=== PATIENT | female | born 1960 | race Caucasian/White ===

== ENCOUNTER → 2020-05-12 08:41 | Outpatient (BNVA) | payer OTHER, SELFPAY | PROVIDERS: Visit Provider Student in an Organized Health Care Education/Training Program | DX: Z76.89 Persons encountering health services in other specified circumstances (principal) ==

== ENCOUNTER → 2020-07-30 08:48 | Outpatient (BNVA) | payer OTHER, SELFPAY | PROVIDERS: PCP Family Medicine; Visit Provider Student in an Organized Health Care Education/Training Program ==

== ENCOUNTER → 2020-11-05 15:17 | Outpatient (BNVA) | payer OTHER, SELFPAY | PROVIDERS: PCP Family Medicine; Visit Provider Student in an Organized Health Care Education/Training Program ==

== ENCOUNTER → 2021-07-21 07:52 | Outpatient (BNVA) | payer OTHER, SELFPAY | PROVIDERS: PCP Family Medicine; Visit Provider Nurse Practitioner Family ==

== ENCOUNTER → 2022-09-29 08:00 | Outpatient (BNVA) | payer OTHER, SELFPAY | PROVIDERS: PCP Family Medicine; Visit Provider Nurse Practitioner Family ==

== ENCOUNTER 2023-06-20 09:33 | Outpatient (AMB) | payer OTHER, SELFPAY ==
--- NOTE | 2023-06-20 09:38 | MHC.OFFVIS ---
Intake Vital Signs 06/20/23 09:39 Height 5 ft 3 in Weight 190 lb 7.67 oz BMI 33.7 BP 112/68 Blood Pressure Location Lt brachial Position Sitting Pulse 80 Pulse Source Pulse Oximeter Temp 97.3 F Temp Source Skin Pulse Oximetry (%) 96 Oxygen Delivery Method Room Air Intake Visit Reasons: Fibromyalgia. Intake Note: Pt last seen by Eden 09/29/22 presents today for follow up and test results. s/p reconstructive right wrist surgery April 04 with Hand [place] Derick Burns. Technology Education Instructor Required: No Accompanied by: Self / Same As Patient Allergies No Known Allergies Allergy (Verified 06/20/23 09:42) Medication List - Last Reconciled 06/20/23 by Vito Colvin MD acetaminophen (Tylenol) 650 mg PO Q6H PRN amitriptyline 100 mg PO BEDTIME anastrozole 1 mg PO DAILY atorvastatin 40 mg PO DAILY [id number] 600 mg calcium- 800 unit-50 mg 1 tab PO DAILY carvedilol 3.125 mg PO DAILY cyclobenzaprine 10 mg PO BEDTIME PRN exemestane 25 mg PO DAILY famotidine 20 mg PO BID PRN losartan 25 mg PO DAILY ondansetron HCl 4 mg PO Q8H PRN oxybutynin chloride 5 mg PO BID pantoprazole 40 mg PO DAILY pregabalin 50 mg PO BEDTIME pregabalin Each day take one cap in AM and one cap at noon sucralfate 10 mL PO QID triamcinolone acetonide 0.1% appl topical HPI HPI Comments History of Present Illness Details 63-year-old female with fibromyalgia returns for follow-up. She was last seen by Allegra Ruiz 09/2022. She is on amitriptyline 100 mg nightly, pregabalin 25 mg morning and noon and 50 mg nightly. She also takes Flexeril 10 mg bedtime. This regimen is well tolerated with no side effects. She states that back in March she had right hand surgery. She states that he surgery ended up being more extensive than initially thought and the recovery time is longer than expected. She states that she has been having a little bit more neck pain that she attributes to increased stress related to surgery. 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 Fibromyalgia Polymyalgia rheumatica Surgical History History of lumpectomy of right breast Hx of cholecystectomy Hx of section Family History Father CVD (cardiovascular disease) Mother Heart attack Social History Alcohol intake: current Alcohol intake frequency: a few times a month Alcohol type: wine and hard liquor Patient Tobacco Use Status: Never used Tobacco e-Cigarette/Vaping Use: Never Used Review of Systems ENT Reports neck pain Musc Details: Increased stress Reports neck pain Physical Exam Vital Signs: Last Vital Signs Temp 97.3 F 06/20/23 09:39 Pulse 80 06/20/23 09:39 BP 112/68 06/20/23 09:39 Pulse Ox 96 06/20/23 09:39 Oxygen Delivery Method Room Air 06/20/23 09:39 BMI result Body Mass Index 33.7 Const General: cooperative and healthy appearing Nutritional Appearance: obese Orientation/consciousness: patient oriented x3 Limitations: no limitations HEENT Head: Yes normocephalic and Yes atraumatic Resp Effort & Inspection: normal respiratory effort and able to speak in complete sentences Auscultation: clear to auscultation bilaterally Cardio Rate: regular rate Rhythm: regular rhythm Skin General skin exam: no rashes or lesions noted Neuro General: patient oriented x3 Extrem Other: Right hand in a splint Fingertips and a little cool and pale consistent with Raynaud's. Normal range of motion of shoulders and hips without pain The straight leg raise test bilaterally Few fibromyalgia tender points Bilateral paraspinal cervical muscle tenderness Assessment & Plan Assessment & Plan (1) Polymyalgia rheumatica: Comment: Initially diagnosed in 2017. Off prednisone since December 2019. No return of PMR symptoms Code(s): M35.3 - Polymyalgia rheumatica Plan: In remission.? She was initially diagnosed in 2017 when she presented with diffuse arthralgia and elevated inflammatory markers.? off prednisone since December 2019. No recurrence of PMR type symptoms. (2) Fibromyalgia: Code(s): M79.7 - Fibromyalgia Plan: Previously tried and failed gabapentin. Fibromyalgia symptoms are currently well controlled with Lyrica 25 mg in the am and at noon and 50 mg at bedtime.? She will continue amitriptyline and cyclobenzaprine at the current doses.? Advised patient to try stopping the afternoon Lyrica dose once she no longer needs the right hand splint. Otherwise continue her medications as prescribed Labs before next visit in 6 months Plan I spent 26 minutes reviewing patient's chart, evaluating patient, ordering diagnostic workup, counseling patient and documenting in the chart Orders: Orders Comprehensive Met. Panel 6 Months M35.3 - Polymyalgia rheumatica, Q60.2 - Renal agenesis, unspecified Coding Level of Care Code Est Pt Level 4 (77669) Diagnoses Polymyalgia rheumatica M35.3 Fibromyalgia M79.7
[2023-06-20 09:39] VITALS: BP 112/68; PULSE 80; TEMP 36.3; O2SAT 96; BMI 33.7
== END 2023-06-20 10:13 | disposition home or self-care (01) ==
PROVIDERS: PCP Family Medicine; Visit Provider Student in an Organized Health Care Education/Training Program
DX: M35.3 Polymyalgia rheumatica (principal); M79.7 Fibromyalgia
CPT/HCPCS: 99214

== ENCOUNTER → 2023-06-20 09:33 | Outpatient (BNVA) | payer OTHER, SELFPAY | PROVIDERS: PCP Family Medicine; Visit Provider Student in an Organized Health Care Education/Training Program ==

== ENCOUNTER 2023-12-19 09:19 | Outpatient (AMB) | payer OTHER, SELFPAY ==
--- NOTE | 2023-12-19 09:20 | MHC.OFFVIS ---
Vital Signs 12/19/23 09:24 Height 5 ft 3 in Weight 187 lb 9.814 oz BMI 33.2 BP 120/82 Blood Pressure Location Lt brachial Position Sitting Pulse 82 Pulse Source Pulse Oximeter Pulse Oximetry (%) 97 Oxygen Delivery Method Room Air Intake Visit Reasons: FMS/cm Intake Note: Patient presents for FMS. Allergies No Known Allergies Allergy (Verified 12/19/23 09:23) Medication List - Last Reconciled 12/19/23 by Vito Colvin MD acetaminophen (Tylenol) 650 mg PO Q6H PRN amitriptyline 100 mg PO BEDTIME anastrozole 1 mg PO DAILY atorvastatin 40 mg PO DAILY [id number] 600 mg calcium- 800 unit-50 mg 1 tab PO DAILY carvedilol 3.125 mg PO DAILY cyclobenzaprine 10 mg PO BEDTIME PRN exemestane 25 mg PO DAILY famotidine 20 mg PO BID PRN losartan 25 mg PO DAILY ondansetron HCl 4 mg PO Q8H PRN oxybutynin chloride 5 mg PO BID pantoprazole 40 mg PO DAILY pregabalin 50 mg PO BEDTIME pregabalin 25 mg PO BID sucralfate 10 mL PO QID triamcinolone acetonide 0.1% appl topical HPI Comments Details: 63-year-old female with fibromyalgia returns for follow-up. She was last seen by Allegra Ruiz 05/2023. She is on amitriptyline 100 mg nightly, pregabalin 25 mg morning and noon and 50 mg nightly. She also takes Flexeril 10 mg bedtime. This regimen is well tolerated with no side effects. She states that she has been having some achy burning pain in her upper left back as well as some fatigue. She feels that her fibromyalgia is flaring up. 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 Fibromyalgia Polymyalgia rheumatica Surgical History H/O hand surgery History of lumpectomy of right breast Hx of cholecystectomy Hx of section Family History Father CVD (cardiovascular disease) Mother Heart attack Social History Alcohol intake: current Alcohol intake frequency: a few times a month Alcohol type: wine and hard liquor Patient Tobacco Use Status: Never used Tobacco e-Cigarette/Vaping Use: Never Used Review of Systems Const Reports fatigue ENT Reports neck pain Musc Reports neck pain Endo Reports fatigue Physical Exam Vital Signs: Last Vital Signs Pulse 82 12/19/23 09:24 BP 120/82 12/19/23 09:24 Pulse Ox 97 12/19/23 09:24 Oxygen Delivery Method Room Air 12/19/23 09:24 BMI result Body Mass Index 33.2 Const General: cooperative and healthy appearing Nutritional Appearance: obese Orientation/consciousness: patient oriented x3 Limitations: no limitations HEENT Head: Yes normocephalic and Yes atraumatic Resp Effort & Inspection: normal respiratory effort and able to speak in complete sentences Auscultation: clear to auscultation bilaterally Cardio Rate: regular rate Rhythm: regular rhythm Skin General skin exam: no rashes or lesions noted Neuro General: patient oriented x3 Extrem Other: Few fibromyalgia tender points Normal range of motion of shoulders and hips without pain Negative straight leg raise test bilaterally Assessment & Plan Assessment & Plan (1) Polymyalgia rheumatica: Comment: Initially diagnosed in 2016. Off prednisone since December 2019. No return of PMR symptoms Code(s): M35.3 - Polymyalgia rheumatica Category: Medical Plan: In remission.? She was initially diagnosed in 2016 when she presented with diffuse arthralgia and elevated inflammatory markers.? off prednisone since December 2019. No recurrence of PMR type symptoms. (2) Fibromyalgia: Code(s): M79.7 - Fibromyalgia Category: Medical Plan: Previously tried and failed gabapentin. Fibromyalgia symptoms are currently well controlled with Lyrica 25 mg in the am and at noon and 50 mg at bedtime.? Continue current meds as prescribed Follow-up in 6 months Plan I spent 16 minutes reviewing patient's chart, evaluating patient, counseling patient and documenting in the chart Coding Level of Care Code Est Pt Level 3 (20485) Diagnoses Polymyalgia rheumatica M35.3 Fibromyalgia M79.7
[2023-12-19 09:24] VITALS: BP 120/82; PULSE 82; O2SAT 97; BMI 33.2
== END 2023-12-19 09:55 | disposition home or self-care (01) ==
PROVIDERS: PCP Family Medicine; Visit Provider Student in an Organized Health Care Education/Training Program
DX: M35.3 Polymyalgia rheumatica (principal); M79.7 Fibromyalgia
CPT/HCPCS: 99213

== ENCOUNTER → 2023-12-19 09:19 | Outpatient (BNVA) | payer OTHER, SELFPAY | PROVIDERS: PCP Family Medicine; Visit Provider Student in an Organized Health Care Education/Training Program ==

== ENCOUNTER 2024-06-20 15:36 | Outpatient (AMB) | payer OTHER, SELFPAY ==
--- NOTE | 2024-06-20 15:40 | MHC.OFFVIS ---
Vital Signs 06/20/24 15:49 Height 5 ft 3 in Weight 190 lb 4.143 oz BMI 33.7 BP 132/80 Blood Pressure Location Lt brachial Position Sitting Pulse 79 Pulse Source Pulse Oximeter Pulse Oximetry (%) 98 Oxygen Delivery Method Room Air Intake Visit Reasons: FMS Intake Note: Patient presents for FMS. Allergies No Known Allergies Allergy (Verified 06/20/24 15:43) Medication List - Last Reconciled 06/20/24 by Tsering Olvera MD acetaminophen (Tylenol) 650 mg PO Q6H PRN amitriptyline 100 mg PO BEDTIME atorvastatin 40 mg PO DAILY [id number] 600 mg calcium- 800 unit-50 mg 1 tab PO DAILY carvedilol 3.125 mg PO DAILY cyclobenzaprine 10 mg PO BEDTIME exemestane 25 mg PO DAILY famotidine 20 mg PO BID PRN losartan 25 mg PO DAILY omeprazole 20 mg PO BID ondansetron HCl 4 mg PO Q8H PRN oxybutynin chloride 5 mg PO BID pregabalin 25 mg PO BID pregabalin 50 mg PO BEDTIME sucralfate 10 mL PO QID HPI Comments Details: Patient is a 64-year-old female with hypertension, hyperlipidemia, polymyalgia rheumatica and fibromyalgia here today for follow up Interval History: Patient last seen 12/19/[address] Colvin. At that time she was found to be in remission with respect to her PMR. At that time she was complaining of widespread joint pains despite her medications Today, Has some stiffness in her shoulders that is concerning for return of PMR Has headaches that respond to Tylenol and no vision changes Still with fibromyalgia pains but manageable Rheumatologic History: Patient initially diagnosed with PMR in 2016 and was finally tapered off prednisone in 12/2019. Since then she has not had any return of her PMR symptoms. Has not had any concerning signs or symptoms for GCA. Also diagnosed with fibromyalgia and is currently maintained on meds Current Rheumatology Medication(s): Amitriptyline 100 mg nightly Pregabalin 25 mg in the morning, 25 mg at noon, 50 mg at night Flexeril 10 mg bedtime PFSH Medical History Breast cancer, right residential systemic steroid user Fibromyalgia Polymyalgia rheumatica Surgical History H/O hand surgery History of lumpectomy of right breast Hx of cholecystectomy Hx of section Family History Father CVD (cardiovascular disease) Mother Heart attack Social History Alcohol intake: current Alcohol intake frequency: a few times a month Alcohol type: wine and hard liquor Patient Tobacco Use Status: Never used Tobacco e-Cigarette/Vaping Use: Never Used Review of Systems Const Details: Review of Systems Constitutional: Denies fever, chills, weight loss ENT: Denies vision changes, eye pain or eye redness, dental caries, dry mouth GI: Denies nausea, vomiting, diarrhea, abdominal pain, change in BM Pulm: Denies SOB, MCDOWELL, hemoptysis, wheezing Cards: Denies chest pain, palpitations Skin: Denies Raynaud's, rash, nail changes, photosensitivity, CHILD WELFARE SPECIALIST: Denies headaches, weakness, paresthesias, recurrent falls MSK: as per HPI All other systems reviewed and are unremarkable except noted above Physical Exam Vital signs reviewed Physical Examination CONSTITUITIONAL Patient alert and cooperative. Well appearing and in no apparent painful distress Buffulo hump noted HEENT Conjunctiva and sclera clear. ?Pupils equal round and reactive to light. ?No lymphadenopathy. ? CHEST/RESPIRATORY SYSTEM Normal respiratory effort and able to speak in complete sentences. ?Clear to auscultation bilaterally. ?No crackles, rales, rhonchi, wheezes heard. CARDIAC SYSTEM Regular rate and rhythm. ?S1 and S2 heard no murmurs. ?Radial pulses intact bilaterally MSK Hands: ?Good irb compliance coordinator strength bilaterally. No deformities noted. ?No synovitis noted to the MCPs, PIPs or DIPs. ?Heberden's nodes noted Wrists: ?Full range of motion at the wrists without pain. ?No tenderness to palpation or synovitis noted to the wrists. Elbows: Full range of motion without pain. No tenderness, weakness, swelling, increased warmth or erythema. Shoulders: Full range of motion without pain. Tenderness to palpation of the AC joints bilaterally Hips: Full range of motion without pain. Hip bursa: No tenderness to palpation Knees: ?Full range of motion. ?No tenderness, swelling, increased warmth or erythema.? Crepitations felt bilaterally Ankles: Full range of motion. ?No tenderness, swelling, increased warmth or erythema.? Feet: ?Negative squeeze test. ?No tenderness to palpation or swelling of the MTPs. Tender points:? Tenderness to palpation of bilateral trapezius, supraspinatus, anterior costochondral junctions SKIN Skin intact without rashes. Results Reviewed Results Reviewed: Scanned lab results reviewed Assessment & Plan Assessment & Plan (1) Polymyalgia rheumatica: Comment: Initially diagnosed in 2016. Off prednisone since December 2019. No return of PMR symptoms Code(s): M35.3 - Polymyalgia rheumatica Category: Medical Plan: #PMR Patient is a 64-year-old female with a history of PMR. Successfully tapered off Prednisone. Currently in remission. Patient with concern for recurrence we will send blood work today No concern for GCA at this time Plan - check CBC, CMP, ESR and CRP - RTC 6 months - Labs prior to visit: CBC, CMP, ESR, CRP (2) Fibromyalgia: Code(s): M79.7 - Fibromyalgia Category: Medical Plan: #Fibromyalgia Patient with fibromyalgia and widespread joint pain Discussed that fibromyalgia is a disease of the nerves and it requires her to be consistent with her stretches and utilizing medications as tools to manage the pain so that she can do more activity. Patient requesting an increase in frequency of her cyclobenzaprine Plan - Amitriptyline 100 mg nightly - Pregabalin 25 mg in the morning, 25 mg at noon, 50 mg at night - Flexeril 10 mg bid - Encouraged stretching and exercise Plan I spent 20 minutes reviewing the record and labs, taking a history, examining the patient, discussing the treatment plan and documenting in the medical record Orders: Orders Comprehensive Met. Panel 6 Months M35.3 - Polymyalgia rheumatica Erythrocyte Sedimentation Rate 6 Months M35.3 - Polymyalgia rheumatica Complete Blood Count Auto Diff Today M35.3 - Polymyalgia rheumatica Comprehensive Met. Panel Today M35.3 - Polymyalgia rheumatica Erythrocyte Sedimentation Rate Today M35.3 - Polymyalgia rheumatica C Reactive Protein 6 Months M35.3 - Polymyalgia rheumatica Complete Blood Count Auto Diff 6 Months M35.3 - Polymyalgia rheumatica C Reactive Protein Today M35.3 - Polymyalgia rheumatica Medications: New amitriptyline 100 mg PO BEDTIME 30 tabs 5RF M79.7 - Fibromyalgia Changed From cyclobenzaprine 10 mg PO BEDTIME 30 tabs 3RF for muscle spasm M79.7 - Fibromyalgia To cyclobenzaprine 10 mg PO BID 60 tabs 5RF for muscle spasm M79.7 - Fibromyalgia Refilled pregabalin 25 mg PO BID 60 caps 5RF M79.7 - Fibromyalgia pregabalin 50 mg PO BEDTIME 30 caps 5RF M79.7 - Fibromyalgia Coding Level of Care Code Est Pt Level 3 (33308) Complex EM visit Add On G2211 Diagnoses Polymyalgia rheumatica M35.3 Fibromyalgia M79.7
[2024-06-20 15:49] VITALS: BP 132/80; PULSE 79; O2SAT 98; BMI 33.7
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
--- OUTSIDE RECORDS SUMMARY | 2024-06-20 19:18 | XMS_ITS | Clinical Summary ---
Author Organization [facility] Address [address] [place] [address] Phone Care Team Providers Care Rail Car Operator Name Role Phone Akin New Primary Care Provider [phone] Allergies No known active allergies Medications amitriptyline (ELAVIL) 25 MG tablet Take 4 tablets by mouth at bed time 3 Active atorvastatin (LIPITOR) 40 MG tablet Take 1 tablet by mouth 1 (one) time each day Active cyclobenzaprine (FLEXERIL) 10 MG tablet Take 1 tablet by mouth 3 (three) times a day Active Calcium 600/Vitamin D3 600-20 MG-MCG tablet TAKE 1 TABLET BY MOUTH EVERY DAY WITH A MEAL/SNACK 3 Active sucralfate (CARAFATE) 1 GM/10ML suspension 3 Active pregabalin (LYRICA) 50 MG capsule 50 mg at bed time 3 Active pantoprazole (PROTONIX) 40 MG EC tablet 3 Active famotidine (PEPCID) 20 MG tablet 3 Active exemestane (AROMASIN) 25 MG chemo tablet Take 25 mg by mouth 1 (one) time each day 3 Active clobetasol (TEMOVATE) 0.05 % ointment APPLY TOPICALLY 2 TIMES A DAY, X 2 WEEKS 3 Active pregabalin (LYRICA) 25 MG capsule TAKE 1 CAPSULE BY MOUTH EVERY MORNING AND AT NOON 4 Active carvedilol (COREG) 3.125 MG tablet Take 1 tablet (3.125 mg total) by mouth in the morning and 1 tablet (3.125 mg total) in the evening. 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 Benign essential hypertension 03/15/2021 Chronic kidney disease stage 3A 03/15/2021 Overview (09/14/2022): Per chart review meets GFR criteria Dyslipidemia 03/15/2021 Hypertensive renal disease 03/15/2021 Total nephrectomy 03/15/2021 Encounters Date Type Department Care Team Description 04/15/2024 Refill [facility] [address] [place] [address] Abraham Guillen MD from Last 3 Months Immunizations Name Administration Dates Next Due Influenza, Unspecified 03/28/2022,03/10/2020 Pfizer SARS-COV-2 09/20/2020,08/30/2020 SARS-CoV-2, Unspecified 03/28/2022 Family History Medical History Relation Comments Heart disease Father Hypertension Father Hypertension Mother Cancer Sibling Relation Status Comments Father Mother Sibling Social History Tobacco Use Types Packs/Day Years Used Date Smoking Tobacco: Never Smokeless Tobacco: Never Tobacco Cessation:Counseling Given: No Alcohol Use Standard Drinks/Week Comments Yes 0 (1 standard drink = 0.6 oz pure alcohol) Alcoholic Drinks/day: Occasional social drink Comments Unknown Sex and Gender Information Value Date Recorded Sex Assigned at Not on file Legal Sex Female 5:08 PM EST Gender Identity Not on file Sexual Orientation Not on file Last Filed Vital Signs Vital Sign Reading Time Taken Comments Blood Pressure 135/77 09/13/2023 2:12 PM EDT Pulse 67 09/13/2023 2:12 PM EDT Temperature - - Respiratory Rate - - Oxygen Saturation 98% 03/31/2021 3:33 PM EST Inhaled Oxygen Concentration - - Weight 88.5 kg (195 lb) 09/13/2023 2:12 PM EDT Height 160 cm (5' 3 ) 03/18/2020 12:01 PM EDT Body Mass Index 34.54 03/18/2020 12:01 PM EDT Plan of Treatment Upcoming Encounters Date Type Department Care Team (Late st Contact Info) Description 09/04/2024 1:15 PM EDT Office Visit [facility] [place] [address] Abraham Guillen MD [address] [phone] Health Maintenance Due Date Last Done Comments Breast Cancer Screening 1960 Pneumococcal Vaccine: Pediatrics (0 to 5 Years) and At-Risk Patients (6 to 64 Years) (1 of 2 - PCV) 1966 Colorectal Cancer Screening: Annual FOBT 2009 Colorectal Cancer Screening: Colonoscopy 2009 Colorectal Cancer Screening: Sigmoidoscopy 2009 Influenza Vaccine (#1) 2024 2, 03/10/2020 Hepatitis B Vaccine Aged Out No longe r eligible based on patient's age to complete this topic Insurance COMPREHENSIVE BENEFITS COMPREHENSIVE BENEFITS Care Teams Rail Car Operator Relationship Specialty Start Date End Date Akin New DO [address] [place] [address] PCP - General 06/01/20
--- OUTSIDE RECORDS SUMMARY | 2024-06-20 19:18 | XMS_ITS | Clinical Summary ---
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 10/03/2023 Active atorvastatin (LIPITOR) 40 mg tablet Take 1 tablet (40 mg total) by mouth. 09/25/2019 Active calcium carbonate-vitam in D3 600 mg-20 mcg (800 unit) tablet TAKE 1 TABLET BY MOUTH EVERY DAY WITH A MEAL/SNACK 08/12/2022 Active carvediloL (COREG) 3.125 mg tablet Take 1 tablet (3.125 mg total) by mouth. 09/25/2019 5 Active famotidine (PEPCID) 20 mg tablet 1 tablet (20 mg total). Active losartan (COZAAR) 25 mg tablet Take 1 tablet (25 mg total) by mouth. 07/19/2022 Active pregabalin (LYRICA) 50 mg capsule Take 1 capsule (50 mg total) by mouth at bedtime. Active sucralfate (CARAFATE) 100 mg/mL suspension 10 mL (1 g total). Active omeprazole OTC (PriLOSEC OTC) 20 mg EC tablet Take 1 tablet (20 mg total) by mouth 2 (two) times a day. Take on empty stomach, wait 30 minutes and then eat to activate medication-gurinder e before breakfast and before dinner 60 tablet 11 06/03/2024 6 Active omeprazole (PriLOSEC) [address] capsule Take 1 capsule (20 mg total) by mouth 2 (two) times a day before meals. Do not crush or chew. 60 capsule 11 06/05/2024 6 Active omeprazole (PriLOSEC) [address] capsule Take 1 capsule (20 mg total) by mouth 2 (two) times a day. Do not crush or chew. 5 Discontinued(Reo rder) omeprazole (PriLOSEC) [address] capsule Take 1 capsule (20 mg total) by mouth 2 (two) times a day. Do not crush or chew. 60 each 11 06/05/2024 5 Discontinued Encounters Date Type Department Care Team Description 06/03/2024 Telephone Gastroenterology [facility] 175 [facility] [address] [phone] Viral Kessler PA 06/03/2024 Telephone Gastroenterology [facility] 175 [facility] [address] [phone] Viral Kessler PA 05/31/2024 Telephone Gastroenterology [facility] [address] [address] Viral Kessler PA 05/31/2024 Telephone Gastroenterology [facility] [address] [phone] Viral Kessler PA Refill request 05/31/2024 Telephone Gastroenterology - [place] 175 [facility] [address] [address] Viral Kessler PA Provider Call Back 05/28/2024 Telephone Gastroenterology - [place] [address] [phone] Héctor Harden DO 05/19/2024 Telephone Gastroenterology [facility] [address] [phone] Domitila Matta PA 05/16/2024 12:38 PM EST Anesthesia Event [facility] [address] [place] [phone] Adonay Carrasquillo MD 05/16/2024 11:25 AM EST - 05/16/2024 11:59 PM EST Hospital Encounter [facility] [address] [place] [phone] Héctor Harden DO Piela, Robert C, MD Steele, Matthew G, CRNA Dysphagia, unspecified type; GERD (gastroesophageal reflux disease); Esophagitis; Esophageal dysmotility Discharge Disposition: Home or Self Care 05/07/2024 Telephone Gastroenterology [facility] 175 [facility] [address] [phone] Viral Kessler PA 04/23/2024 Telephone Gastroenterology [facility] [address] [phone] Viral Kessler PA Provider Call Back 04/11/2024 Telephone Gastroenterology [facility] 175 [facility] [address] [phone] Viral Kessler PA Request For Order(s) 04/01/2024 Telephone Gastroenterology [facility] [address] [phone] Viral Kessler PA provider call back [facility] [address] [phone] Viral Kessler PA provider call back from Last 3 Months Surgical History Surgery Date Site/Laterality Comments COLONOSCOPY 2011 PROCEDURE: HISTORICAL COLONOSCOPY SECTION PROCEDURE: HISTORICAL ; COMMENT: x 4 CARPAL TUNNEL RELEASE Bilateral PROCEDURE: HISTORICAL CARPAL TUNNEL REL COLONOSCOPY 04/06/2016 PROCEDURE: HISTORICAL COLONOSCOPY; COMMENT: Per PCP note.No results COLONOSCOPY 10/02/2019 PROCEDURE: HISTORICAL COLONOSCOPY; COMMENT: ascending colon polyp BREAST LUMPECTOMY Right Medical History Medical History Date Comments Congenital absence of kidney DX: Congenital absence of kidney; COMMENT: left 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; COMMENT: right Cervical spine syndrome DX:Cervi marilu spine syndrome; COMMENT: with associated muscle spasm Hypertension DX:Hypertension Hyperlipidemia DX:Hyperlipidemi a Fibromyalgia DX:Fibromyalgia Polymyalgia (CMS/HCC) DX:Polymya lgia (HCC) Shingles 10/01/2019 DX:Shingles; COM MENT: 11/2018 Colon polyps 10/01/2019 DX:Colon polyps; COMMENT: 2011 CN, Esophageal reflux DX:Esophageal reflux Other chest pain DX:Other chest pain Acute esophagitis DX:Acute esoph agitis Esophageal ulcer DX:Esophageal u lcer Nausea and vomiting DX:Nausea an d vomiting Dysphagia DX:Dysphagia Regurgitation of food DX:Regurgi tation of food Dysphagia DX:Dysphagia Esophagitis DX:Esophagitis Regurgitation of food DX:Regurgi tation of food Breast cancer (CMS/HCC) Family History Medical History Relation Name Comments Hypertension Brother Coronary artery disease Father Hypertension Mother CAD Breast cancer Sister Hypertension Relation Name Status Comments Brother Father Mother Sister Social History Tobacco Use Types Packs/Day Years [...] file Not on file Not on file Obstetrics History Last Filed Vital Signs Vital Sign Reading Time Taken Comments Blood Pressure 136/78 05/16/2024 1:15 PM EST Pulse 77 05/16/2024 1:15 PM EST Temperature 36.1 ??C (97 ??F) 05/16/2024 12:55 PM EST Respiratory Rate 16 05/16/2024 1:15 PM EST Oxygen Saturation 100% 05/16/2024 1:15 PM EST Inhaled Oxygen Concentration - - Weight 86.2 kg (190 lb) 05/16/2024 11:39 AM EST Height 160 cm (5' 3 ) 05/16/2024 11:39 AM EST Body Mass Index 33.66 05/16/2024 11:39 AM EST Plan of Treatment Upcoming Encounters Date Type Department Care Team (Late st Contact Info) Description 06/25/2024 9:00 AM EST Hospital Encounter [facility] [address] [place] [address] MariluHéctor, 175 [facility] [address] [place] [address] Health Maintenance Due Date Last Done Comments Breast Cancer Screening 1960 Pneumococcal Vaccine: Pediatrics (0 to 5 Years) and At-Risk Patients (6 to 64 Years) (1 of 2 - PCV) 1966 DTaP,Tdap,and Td Vaccines (1 - Tdap) 1979 Zoster Vaccines (1 of 2) 1979 Cervical Cancer Screening: P ap Smear 1981 Cholesterol Screening (Lipid Panel) 04/30/2022 Colorectal Cancer Screening: Colonoscopy 04/30/2022 Depression Screening 04/30/2022 HIV Screening 04/30/2022 Hepatitis C Screening 04/30/2022 Social Influencers of Health Screening 04/30/2022 Hypertension/CHF/CAD Annual BMP Blood Test 05/04/2022 COVID-19 Vaccine (2023-2 5 season) 2024 03/28/2022, 09/20/2020, 08/30/2020 Influenza Vaccine (#1) 2024 , 03/10/2020 RSV Immunization Patients 60 + Years Old (1 - 1-dose 75+ series) 2035 HIB Vaccines Aged Out No longer eligi ble based on patient's age to complete this topic HPV Vaccines Aged Out No longer eligi ble based on patient's age to complete this topic Hepatitis A Vaccines Aged Out No long er eligible based on patient's age to complete this topic Hepatitis B Vaccines Aged Out No long er eligible based on patient's age to complete this topic IPV Vaccines Aged Out No longer eligi ble based on patient's age to complete this topic MMR Vaccines Aged Out No longer eligi ble based on patient's age to complete this topic Meningococcal ACWY Vaccine Aged Out N o longer eligible based on patient's age to complete this topic RSV Immunization Patients Under 20 months Aged Out No longer eligible b ased on patient's age to complete this topic Varicella Vaccines Aged Out No longer eligible based on patient's age to complete this topic Procedures Procedure Name Priority Date/Time Associated Diagnosis Comments EGD Routine 05/16/2024 12:54 PM EST Dysphagia, unspecified type GERD (gastroesophageal reflux disease) Esophagitis Esophageal dysmotility TISSUE EXAM Routine 05/16/2024 12:51 PM EST Dysphagia, unspecified type GERD (gastroesophageal reflux disease) Esophagitis Esophageal dysmotility from Last 3 Months Results * EGD With Botox Injection; Anesthesia - MAC; [facility] ENDOSCOPY (05/16/2024 12:54 PM EST) Anatomical Region Laterality Modality Other 05/16/2024 12:3 8 PM EST Impressions 05/16/2024 12:57 PM EST - Normal examined duodenum. ? - Normal stomach. ? - Esophageal ulcer with stigmata of recent bleeding. ? Biopsied. ? - Benign-appearing esophageal stenosis. Dilated. Recommendation: ?- Discharge patient to home. ? - Resume previous diet. ? - Continue present medications. ? - Await pathology results. ? - Mucosal desquamation obstructing the distal ? esophagus, oral secretions in esophagus, tight GEJ. A ? dysmotility disorder is suspected. Patient should ? undergo a HREM to rule out achalasia. Narrative 05/16/2024 12:57 PM EST [facility] GI Patient Name: Elma Cherry Procedure Date: 05/16/2024 12:38 PM Date of : 1960 Age: 63 Gender: Female Note Status: Finalized Attending MD: Héctor Harden DO, [id number] Procedure Date No Time: 05/16/2024 Procedure: ? Upper GI endoscopy Indications: ? Dysphagia, Stricture of the esophagus Providers: ? Héctor Harden DO Referring MD: ?Eric Rivera MD Medicines: ? Monitored Anesthesia Care Complications: ? No immediate complications. Estimated blood loss: ? Minimal. Estimated Blood Loss: ? Estimated blood loss was minimal. Procedure: ? Pre-Anesthesia Assessment: ? - - Prior to the procedure, a History and Physical was ? performed, and patient medications and allergies were ? reviewed. The patient is competent. The risks and ? benefits of the procedure and the sedation options and ? risks were discussed with the patient. All questions ? were answered and informed consent was obtained. ? Patient identification and proposed procedure were ? verified by the physician, the nurse, the ? anesthesiologist, the cone examiner and the donor support technician ? in the pre-procedure area in the endoscopy suite. ? Mental Status Examination: alert and oriented. Airway ? Examination: normal oropharyngeal airway and neck ? mobility. Respiratory Examination: clear to ? auscultation. CV Examination: normal. Prophylactic ? Antibiotics: The patient does not require prophylactic ? antibiotics. Prior Anticoagulants: The patient has ? taken no anticoagulant or antiplatelet agents. ASA ? Grade Assessment: II - A patient with severe systemic ? disease. After reviewing the risks and benefits, the ? patient was deemed in satisfactory condition to ? undergo the procedure. The anesthesia plan was to use ? monitored anesthesia care (MAC). Immediately prior to ? administration of medications, the patient was ? re-assessed for adequacy to receive sedatives. The ? heart rate, respiratory rate, oxygen saturations, ? blood pressure, adequacy of pulmonary ventilation, and ? response to care were monitored throughout the ? procedure. The physical status of the patient was ? re-assessed after the procedure. ? After obtaining informed consent, the endoscope was ? passed under direct vision. Throughout the procedure, ? the patient's blood pressure, pulse, and oxygen ? saturations were monitored continuously. The Endoscope ? was introduced through the mouth, and advanced to the ? second part of duodenum. The upper GI endoscopy was ? accomplished without difficulty. The patient tolerated ? the procedure well. Findings: ?The examined duodenum was normal. ? The stomach was normal. ? One cratered esophageal ulcer with stigmata of recent ? bleeding was found 33 to 34 cm from the incisors. The ? lesion was 20 mm in largest dimension. Biopsies were ? taken with a cold forceps for histology. ? One benign-appearing, intrinsic mild stenosis was ? found 36 to 37 cm from the incisors. This stenosis ? measured 1.5 cm (inner diameter) x 1 cm (in length). ? The stenosis was traversed. A TTS dilator was passed ? through the scope. Dilation with a 12-13.5-15 mm ? balloon dilator was performed to 13 mm. The dilation ? site was examined following endoscope reinsertion and ? showed moderate mucosal disruption. Procedure Code(s): ? --- Professional --- ? 65129, Esophagogastroduodenoscopy, flexible, ? transoral; with transendoscopic balloon dilation of ? esophagus (less than 30 mm diameter) ? 33324, 59, Esophagogastroduodenoscopy, flexible, ? transoral; with biopsy, single or multiple Diagnosis Code(s): ? --- Professional --- ? K22.11, Ulcer of esophagus with bleeding ? K22.2, Esophageal obstruction ? R13.10, Dysphagia, unspecified CPT copyright 2020 [employer]. All rights reserved. The codes documented in this report are preliminary and upon chartered accountant review may be revised to meet current compliance requirements. HÉCTOR Harden DO 05/16/2024 12:56:54 PM This report has been signed electronically.Héctor Harden DO Number of Addenda: 0 Note Initiated On: 05/16/2024 12:38 PM Scope In: Scope Out: ? Endoscopy Department at [facility] - [address] [place] [address], ? [place] [address] Procedure Note Héctor Harden DO - 05/16/2024 [facility] GI Patient Name: Elma Cherry Procedure Date: 05/16/2024 12:38 PM Date of : 1960 Age: 63 Gender: Female Note Status: Finalized Attending MD: Héctor Harden DO, [id number] Procedure Date No Time: 05/16/2024 Procedure: Upper GI endoscopy Indications: Dysphagia, Stricture of the esophagus Providers: Héctor Harden DO Referring MD: Eric Rivera MD Medicines: Monitored Anesthesia Care Complications: No immediate complications. Estimated blood loss: Minimal. Estimated Blood Loss: Estimated blood loss was minimal. Procedure: Pre-Anesthesia Assessment: - - Prior to the procedure, a History and Physicalwas performed, and patient medications and allergieswere reviewed. The patient is competent. The risks and benefits of the procedure and the sedation optionsand risks were discussed with the patient. Allquestions were answered and informed consent was obtained. Patient identification and proposed procedure were verified by the physician, the nurse, the anesthesiologist, the cone examiner and thetechnician in the pre-procedure area in the endoscopy suite. Mental Status Examination: alert and oriented.Airway Examination: normal oropharyngeal airway and neck mobility. Respiratory Examination: clear to auscultation. CV Examination: normal. Prophylactic Antibiotics: The patient does not requireprophylactic antibiotics. Prior Anticoagulants: The patient has taken no anticoagulant or antiplatelet agents. ASA Grade Assessment: II - A patient with severesystemic disease. After reviewing the risks and benefits,the patient was deemed in satisfactory condition to undergo the procedure. The anesthesia plan was touse monitored anesthesia care (MAC). Immediately priorto administration of medications, the patient was re-assessed for adequacy to receive sedatives. The heart rate, respiratory rate, oxygen saturations, blood pressure, adequacy of pulmonary ventilation,and response to care were monitored throughout the procedure. The physical status of the patient was re-assessed after the procedure. After obtaining informed consent, the endoscope was passed under direct vision. Throughout theprocedure, the patient's blood pressure, pulse, and oxygen saturations were monitored continuously. TheEndoscope was introduced through the mouth, and advanced tothe second part of duodenum. The upper GI endoscopy was accomplished without difficulty. The patienttolerated the procedure well. Findings: The examined duodenum was normal. The stomach was normal. One cratered esophageal ulcer with stigmata ofrecent bleeding was found 33 to 34 cm from the incisors.The lesion was 20 mm in largest dimension. Biopsieswere taken with a cold forceps for histology. One benign-appearing, intrinsic mild stenosis was found 36 to 37 cm from the incisors. This stenosis measured 1.5 cm (inner diameter) x 1 cm (inlength). The stenosis was traversed. A TTS dilator waspassed through the scope. Dilation with a 12-13.5-15 mm balloon dilator was performed to 13 mm. Thedilation site was examined following endoscope reinsertionand showed moderate mucosal disruption. Procedure Code(s): --- Professional --- 91153, Esophagogastroduodenoscopy, flexible, transoral; with transendoscopic balloon dilation of esophagus (less than 30 mm diameter) 95479, 59, Esophagogastroduodenoscopy, flexible, transoral; with biopsy, single or multiple Diagnosis Code(s): --- Professional --- K22.11, Ulcer of esophagus with bleeding K22.2, Esophageal obstruction R13.10, Dysphagia, unspecified CPT copyright 2020 [employer]. All rights reserved. The codes documented in this report are preliminary and upon chartered accountant reviewmay be revised to meet current compliance requirements. HÉCTOR Harden DO 05/16/2024 12:56:54 PM This report has been signed electronically.Héctor Harden DO Number of Addenda: 0 Note Initiated On: 05/16/2024 12:38 PM Scope In: Scope Out: Endoscopy Department at [facility] - [address] [place] [phone] IMPRESSION: - Normal examined duodenum. - Normal stomach. - Esophageal ulcer with stigmata of recentbleeding. Biopsied. - Benign-appearing esophageal stenosis. Dilated. Recommendation: - Discharge patient to home. - Resume previous diet. - Continue present medications. - Await pathology results. - Mucosal desquamation obstructing the distal esophagus, oral secretions in esophagus, tight GEJ.A dysmotility disorder is suspected. Patient should undergo a HREM to rule out achalasia. Héctor Harden DO GI~PROCEDURE ORDERAB LES * Tissue exam (05/16/2024 12:51 PM EST) Final Diagnosis A. Distal esophagus, biopsy. Esophageal squamous mucosa with acute inflammation, mucosal erosion, and a rare detached fragment of fibrinopurulent exudate. No glandular mucosa and no intraepithelial eosinophils identified. A GMS stain is negative for fungal forms. B. 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 4 1:11 PM EST [facility] Gross Description A. Esophagus, distal esophageal ulcer biopsies: Labeled distal esophagus . Received in formalin are four irregular pink-white mucosal tissue fragments, each measuring approximately 0.2 cm in greatest dimension, which are wrapped in paper and submitted in toto in one cassette, four pieces, multiple levels on one slide. B. Esophagus, mid esophagus biopsies: Labeled mid esophagus . Received in formalin are two irregular pink-white mucosal tissue fragments, measuring 0.2 cm and 0.4 cm in greatest dimension, which are wrapped in paper and submitted in toto in one cassette, two pieces, multiple levels on one slide. IMTIAZ 1:11 PM EST [facility] Disclaimer NOTE: The immunohistochemical tests and in situ hybridization tests were developed and their performance characteristics were determined by [facility]. They have not been cleared or approved by the U.S. Food and Drug Administration. The FDA has determined that such clearance or approval is not necessary. These tests are used for clinical purposes. They should not be regarded as investigational or for research. This laboratory is certified under the Clinical Laboratory Improvement Amendments of 1988 (CLIA) as qualified to perform high complexity clinical laboratory testing. (controls appropriate) Unless otherwise specified, all tissue is 10% NB formalin fixed and paraffin embedded. 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
--- OUTSIDE RECORDS SUMMARY | 2024-06-20 19:18 | XMS_ITS | Encounter Summary ---
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 Role Phone Akin New DO Primary Care Provider [phone] Reason for Referral * Consultation (Urgent) - Authorized Specialty Diagnoses / Procedures Referred By Krystal lei Referred To Contact Gastroenterology Diagnoses Esophageal disorder Viral Kessler PA 175 [facility] [address] [address] [facility] - Internal Medicine [address] [place] [address] Referral ID Status Reason Start Date Expiration Date Visits Requested Visits Authorized [id number] Authorized Specialty Services Required 06/03/2024 06/03/2025 6 6 Encounter Details Date Type Department Care Team ([facility] st Contact Info) Description 06/03/2024 Telephone Gastroenterology - [place] 175 [facility] [address] [facility] [address] [address] Viral Kessler PA [address] [facility] [address] [place] [address] Social History Tobacco Use Types Packs/Day Years [...] as of this encounter Progress Notes * Opal Leong [place] - 06/12/2024 11:35 AM EST Referrals department has obtained authorization and are trying to book patient. Waiting for appointment. * REENA Phipps - 06/03/2024 11:50 AM EST Patient needs to be set up for high resolution manometry at [facility]. Will put an order to [facility] for manometry study documented in this encounter Plan of Treatment Upcoming Encounters Date Type Department Care Team (Late st Contact Info) Description 06/25/2024 9:00 AM EST Hospital Encounter [facility] Endoscopy [address] [place] [phone] Evans Harden DO 175 [facility] [address] [place] [address] Scheduled Referrals Name Type Priority Associated Diagnoses Order Schedule Ambulatory referral to Gastroenterology Outpatient Referral Routine Esophageal disorder 1 Occurrences starting 06/03/2024 until 06/03/2025 documented as of this encounter Visit Diagnoses Diagnosis Esophageal disorder- Primary Unspecified disorder of esophagus documented in this encounter Care Teams Dry Chain Puller Relationship Specialty Start Date End Date Akin New DO [address] [place], [place] PCP - General 03/27/09 documented as of this encounter
--- OUTSIDE RECORDS SUMMARY | 2024-06-20 19:18 | XMS_ITS | Encounter Summary ---
Author Organization [facility] Address [address] [place] [address] Care Team Providers Care Car Changer Name Role Phone Akin New DO Primary Care Provider [phone] Reason for Visit * Reason Onset Date Comments Provider Call Back 04/23/2024 Encounter Details Date Type Department Care Team (Late st Contact Info) Description 04/23/2024 Telephone Gastroenterology - [place] [address] [place] [phone] Viral Kessler PA [address] [place] [address] Provider Call Back Social History Tobacco Use Types Packs/Day Years Used Date Smoking Tobacco: Never Smokeless Tobacco: Never Alcohol Use Standard Drinks/Week Comments Yes 0 [...] as of this encounter Progress Notes * Yomaira Wilkerson - 05/06/2024 3:02 PM EST Patient calling would like to proceed with scheduling an EGD * Opal Leong MA - 05/03/2024 10:01 AM EST results are in your bin for review, thanks. * REENA Phipps - 05/03/2024 8:13 AM EST I have contacted [facility] a couple of times to have that report sent over for the abnormal swallowing study but have not seen the paperwork. Please see if we can obtain those results. Thank you * REENA Phipps - 04/23/2024 12:05 PM EST I have tried to reach him on a couple of occasions this morning and 1 I was told that he was busy and then this last time the phone nobody answered. Will try and call him again and if they call againplease see if they can send us the results. Thank you * Yomaira Wilkerson - 04/23/2024 9:10 AM EST Lexx calling from [facility] Radiology states that he has findings that need to be discussed. States Viral can either call or respond on tiger text which may be easier. Call back # [phone]. documented in this encounter Plan of Treatment Upcoming Encounters Date Type Department Care Team (Late st Contact Info) Description 06/25/2024 9:00 AM EST Hospital Encounter [facility] Endoscopy [address] [place] [address] Evans Harden DO 175 [facility] [address] [place] [address] documented as of this encounter Visit Diagnoses Not on filedocumented in this encounter Care Teams Car Changer Relationship Specialty Start Date End Date Akin New DO [address] [place] [address] PCP - General 03/27/09 documented as of this encounter
--- OUTSIDE RECORDS SUMMARY | 2024-06-20 19:18 | XMS_ITS | Encounter Summary ---
Author Organization [facility] Address [address] [place] [address] Care Team Providers Care Foundry Technician Name Role Phone Akin New DO Primary Care Provider [phone] Reason for Visit * Reason Onset Date Comments Provider Call Back 05/31/2024 Encounter Details Date Type Department Care Team (Late st Contact Info) Description 05/31/2024 Telephone Gastroenterology - [place] [address] [place] [phone] Viral Kessler PA [address] [place] [address] Provider Call Back Social History Tobacco Use [...] Progress Notes * Opal Leong MA - 06/18/2024 11:06 AM EST In encounter from 06/03, message was placed on 06/12 that referrals department has obtained approval and we are waiting for them to book the patient. Left a vm for the patient to call our office back. * Marina Bradshaw - 06/18/2024 10:36 AM EST Spoke to patient to scheduled repeat egd with dr michel and she was asking about message below. She hasn't heard from anyone. Please reach out to patient. Thank you. * Opal Leong MA - 06/03/2024 8:42 AM EST I see a note from 05/19/[address] Michel wants a high resolution esophageal manometry for achalasia. Please advise, thanks. [facility] does them, can we put in the order. Thanks * Yomaira Wilkerson - 05/31/2024 2:49 PM EST Patient calling states she will go for esophageal manometry at [facility] or [facility]. Patient would prefer to be seen at [facility]. Patient prefers more local. documented in this encounter Plan of Treatment Upcoming Encounters Date Type Department Care Team (Late st Contact Info) Description 06/25/2024 9:00 AM EST Hospital Encounter [facility] Endoscopy [address] [place] [phone] Evans Michel DO 175 [facility] [address] [place] [address] documented as of this encounter Visit Diagnoses Not on filedocumented in this encounter Care Teams Foundry Technician Relationship Specialty Start Date End Date Akin New DO [address] [place], [place] PCP - General 03/27/09 documented as of this encounter
--- OUTSIDE RECORDS SUMMARY | 2024-06-20 19:18 | XMS_ITS | Encounter Summary ---
Author Organization [facility] Address [address] [place] [address] Care Team Providers Care Personal Attendant Name Role Phone Akin New DO Primary Care Provider [phone] Encounter Details Date Type Department Care Team (Late st Contact Info) Description 05/31/2024 Telephone Gastroenterology - [place] [address] [facility] 175 [facility] [address] [place] [address] Viral Kessler PA [address] [place] [address] Social History Tobacco Use Types Packs/Day Years [...] Progress Notes * Opal Leong MA - 06/03/2024 3:40 PM EST Pharmacy has been updated in chart. * REENA Phipps - 05/31/2024 4:28 PM EST Will send the omeprazole to her pharmacy but I need to know which pharmacy to send to please * REENA Phipps - 05/31/2024 4:27 PM EST Needs omeprazole twice daily to be sent to her pharmacy documented in this encounter Plan of Treatment Upcoming Encounters Date Type Department Care Team (Late st Contact Info) Description 06/25/2024 9:00 AM EST Hospital Encounter [facility] Endoscopy [address] [place] [phone] Evans Harden DO [address] [address] documented as of this encounter Visit Diagnoses Not on filedocumented in this encounter Care Teams Personal Attendant Relationship Specialty Start Date End Date Akin New DO [address] [place] [address] PCP - General 03/27/09 documented as of this encounter
--- OUTSIDE RECORDS SUMMARY | 2024-06-20 19:18 | XMS_ITS | Encounter Summary ---
Author Organization [facility] Address [address] [place] [address] Care Team Providers Care Applied Behavior Science Specialist Name Role Phone Akin New DO Primary Care Provider [phone] Reason for Visit * Reason Onset Date Comments Refill request 05/31/2024 Encounter Details Date Type Department Care Team (Late st Contact Info) Description 05/31/2024 Telephone Gastroenterology - [place] [address] [place] [phone] Viral Kessler PA [address] [place] [address] Refill request Social History Tobacco Use Types Packs/Day Years [...] encounter Progress Notes * Yomaira Wilkerson - 05/31/2024 2:53 PM EST Patient calling states Dr Harden did her EGD 05/16 and wanted her to take omeprazole 2 times a day however there has been nothing sent to her pharmacy. documented in this encounter Plan of Treatment Upcoming Encounters Date Type Department Care Team (Late st Contact Info) Description 06/25/2024 9:00 AM EST Hospital Encounter [facility] Endoscopy [address] [place] [phone] Evans Harden DO 175 [facility] [address] [place] [address] documented as of this encounter Visit Diagnoses Not on filedocumented in this encounter Care Teams Applied Behavior Science Specialist Relationship Specialty Start Date End Date Akin New DO [address] [place] [address] PCP - General 03/27/09 documented as of this encounter
--- OUTSIDE RECORDS SUMMARY | 2024-06-20 19:18 | XMS_ITS | Encounter Summary ---
Author Organization [facility] Address [address] [place] [address] Care Team Providers Care Telecommunications Repairer Name Role Phone Akin New DO Primary Care Provider [phone] Encounter Details Date Type Department Care Team ([facility] st Contact Info) Description 06/03/2024 Telephone Gastroenterology - [place] [address] [facility] [address] [place] [address] Viral Kessler PA [address] [facility] [address] [place] [address] Social History Tobacco Use Types Packs/Day Years [...] on file documented as of this encounter Ordered Prescriptions Prescription Sig Dispensed Refills Start Date End Da te omeprazole OTC (PriLOSEC OTC) 20 mg EC tablet Take 1 tablet (20 mg total) by mouth 2 (two) times a day. Take on empty stomach, wait 30 minutes and then eat to activate medication-take before breakfast and before dinner 60 tablet 11 06/03/2024 06/03/2025 documented in this encounter Progress Notes * REENA Phipps - 06/03/2024 4:22 PM EST Patient is looking for omeprazole 20 mg to be prescribed twice a day and we will send it to her pharmacy documented in this encounter Plan of Treatment Upcoming Encounters Date Type Department Care Team (Late st Contact Info) Description 06/25/2024 9:00 AM EST Hospital Encounter [facility] Endoscopy [address] [place] [phone] Evans Harden DO 175 [facility] [address] [place] [address] documented as of this encounter Visit Diagnoses Not on filedocumented in this encounter Care Teams Telecommunications Repairer Relationship Specialty Start Date End Date Akin New DO [address] [place], [place] PCP - General 03/27/09 documented as of this encounter
== END 2024-06-20 16:09 | disposition home or self-care (01) ==
PROVIDERS: PCP Family Medicine; Visit Provider Student in an Organized Health Care Education/Training Program
DX: M35.3 Polymyalgia rheumatica (principal); M79.7 Fibromyalgia
CPT/HCPCS: 99213

== ENCOUNTER → 2024-06-20 15:36 | Outpatient (BNVA) | payer OTHER, SELFPAY | PROVIDERS: PCP Family Medicine; Visit Provider Student in an Organized Health Care Education/Training Program ==

== ENCOUNTER 2024-12-05 07:43 | Outpatient (AMB) | payer OTHER, SELFPAY ==
--- OUTSIDE RECORDS SUMMARY | 2024-12-05 07:45 | XMS_ITS | Referral Summary ---
Author Organization [facility] Address [address] [place] [address] Care Team Providers Care Price Changer Name Role Phone Akin New Primary Care Provider [phone] Allergies No known active allergies Medications pregabalin (LYRICA) 25 mg capsule Take 25 mg by mouth 2 times a day. Active pregabalin (LYRICA) 50 mg capsule Take 50 mg by mouth 2 times a day. Active oxybutynin (DITROPAN) 5 mg tablet Take 5 mg by mouth. Active cyclobenzaprine (FLEXERIL) 10 mg tablet Take 10 mg by mouth. Active esomeprazole (NexIUM) 40 mg capsule Take 20 mg by mouth. 07/02/2024 Active atorvastatin (LIPITOR) 40 mg tablet Take 40 mg by mouth once a day. Active amitriptyline (ELAVIL) 100 mg tablet Take 100 mg by mouth nightly. Active carvediloL (COREG) 3.125 mg tablet Take 3.125 mg by mouth. Active exemestane (AROMASIN) 25 mg tablet Take 25 mg by mouth once a day. Active losartan (COZAAR) 25 mg tablet Take 25 mg by mouth once a day. Active famotidine (PEPCID) 20 mg tablet Take 20 mg by mouth. Active sucralfate (CARAFATE) 1 g/10 mL suspension Take 10 mg by mouth. 07/22/2024 Active hyoscyamine (ANASPAZ,LEVSIN) 0.125 mg tablet Take by mouth. 03/12/2024 Active Hospital, Clinic, or Other Facility Administered Medication Ordered Dose Route Frequency Start Date End Date Status lidocaine (XYLOCAINE) 4% (40 mg/mL) topical solution 80 mg 80 mg topical Once 08/12/2024 Active Social History Tobacco Use Types Packs/Day Years Used Date Smoking Tobacco: Never Smokeless Tobacco: Never Tobacco Cessation:Counseling Given: Not Answered Comments No Sex and Gender Information Value Date Recorded Sex Assigned at Female 07/29/2024 10:14 AM EDT Legal Sex Female 4:41 PM EDT Gender Identity Female 07/29/2024 10:14 AM EDT Sexual Orientation Not on file Last Filed Vital Signs Vital Sign Reading Time Taken Comments Blood Pressure 118/68 07/29/2024 11:16 AM EDT Pulse 90 07/29/2024 11:16 AM EDT Temperature - - Respiratory Rate - - Oxygen Saturation 95% 07/29/2024 11:16 AM EDT Inhaled Oxygen Concentration - - Weight 85.3 kg (188 lb) 07/29/2024 11:16 AM EDT Height 168 cm (5' 6.14 ) 07/29/2024 11:16 AM EDT Body Mass Index 30.21 07/29/2024 11:16 AM EDT Plan of Treatment Not on file Insurance [employer] [place] [address] Care Teams Price Changer Relationship Specialty Start [place] [address] PCP - General Family Medicine 07/10/24
--- OUTSIDE RECORDS SUMMARY | 2024-12-05 07:45 | XMS_ITS | Clinical Summary ---
Author Organization 175 [facility] Address [address] [place] [address] Phone Care Team Providers Care Cisco Administrator Name Role Phone Akin New DO Primary Care Provider [phone] Allergies No known active allergies Medications amitriptyline (ELAVIL) 100 mg tablet Take 1 tablet (100 mg total) by mouth. 4 Active atorvastatin (LIPITOR) 40 mg tablet Take 1 tablet (40 mg total) by mouth. 0 Active calcium carbonate-vitam in D3 600 mg-20 mcg (800 unit) tablet TAKE 1 TABLET BY MOUTH EVERY DAY WITH A MEAL/SNACK 3 Active carvediloL (COREG) 3.125 mg tablet Take 1 tablet (3.125 mg total) by mouth. 0 Active famotidine (PEPCID) 20 mg tablet 1 tablet (20 mg total). Active losartan (COZAAR) 25 mg tablet Take 1 tablet (25 mg total) by mouth. 3 Active pregabalin (LYRICA) 50 mg capsule Take 1 capsule (50 mg total) by mouth at bedtime. Active omeprazole OTC (PriLOSEC OTC) 20 mg EC tablet Take 1 tablet (20 mg total) by mouth 2 (two) times a day. Take on empty stomach, wait 30 minutes and then eat to activate medication-gurinder e before breakfast and before dinner 60 tablet 11 5 06/03/19 26 Active omeprazole (PriLOSEC) [address] capsule Take 1 capsule (20 mg total) by mouth 2 (two) times a day before meals. Do not crush or chew. 60 capsule 11 5 06/05/19 26 Active sucralfate (CARAFATE) 100 mg/mL suspension TAKE 10 ML BY MOUTH 4 TIMES DAILY. TAKE IN BETWEEN MEALS AND BEDTIME 900 mL 6 5 Active Active Problems Problem Noted Date Diagnosed Date HTN (hypertension) 09/27/2024 Gastroesophageal reflux disease without esophagi tis 09/27/2024 Cancer ([facility] V24, [facility] V28) 09/27/2024 Laryngospasm 09/27/2024 Encounters Date Type Department Care Team Description 09/27/2024 12:57 PM EDT Anesthesia Event [facility] Endoscopy [address] [place] [phone] Sarah Patrick MD 09/27/2024 11:22 AM EDT - 09/27/2024 11:59 PM EDT Hospital Encounter [facility] Endoscopy [address] [place] [phone] Héctor Harden DO Kapplan, Jacob A, CRNA Kriz, Petra, MD Abnormal lower esophageal sphincter relaxation; Esophageal disorder; Gastroesophageal reflux disease, unspecified whether esophagitis present; Esophageal dysmotility; GERD (gastroesophageal reflux disease); Dysphagia, unspecified type Discharge Disposition: Home or Self Care 09/20/2024 Telephone Gastroenterology [facility] [address] [phone] Shanthi Soria MD 09/20/2024 Telephone Gastroenterology [facility] 175 [facility] [address] [phone] Shanthi Soria MD 09/11/2024 Telephone Gastroenterology [facility] 175 [facility] [address] [phone] Viral Kessler PA PROVIDER CALL BACK from Last 3 Months Surgical History Surgery [...] DX:Hypertension Hyperlipidemia DX:Hyperlipidemi a Fibromyalgia DX:Fibromyalgia Polymyalgia ([facility] V24) DX:Jesus ymyalgia ([facility]) Shingles 10/01/2019 DX:Shingles; COM MENT: 11/2018 Colon polyps 10/01/2019 DX:Colon polyps; COMMENT: 2011 CN, Esophageal reflux DX:Esophageal reflux Other chest pain DX:Other chest pain Acute esophagitis DX:Acute esoph agitis Esophageal ulcer DX:Esophageal u lcer Nausea and vomiting DX:Nausea an d vomiting Dysphagia DX:Dysphagia Regurgitation of food DX:Regurgi tation of food Dysphagia DX:Dysphagia Esophagitis DX:Esophagitis Regurgitation of food DX:Regurgi tation of food Breast cancer ([facility] V24, [facility] V28) Family History Medical History Relation Name Comments [...] Safety Answer Date Record ed Physical Abuse 09/27/2024 Verbal Abuse 09/27/2024 Comments No Sex and Gender Information Value Date Recorded Sex Assigned at Female 06/24/2024 10:37 AM EST Legal Sex Female 10:03 PM EST Gender Identity Female 06/24/2024 10:37 AM EST Sexual Orientation Choose not to disclose 2024 11:05 AM EST Obstetrics History Last Filed Vital Signs Vital Sign Reading Time Taken Comments Blood Pressure 130/84 09/27/2024 1:44 PM EDT Pulse 85 09/27/2024 1:44 PM EDT Temperature 36.1 C (97 F) 09/27/2024 12:35 PM EDT Respiratory Rate 15 09/27/2024 1:44 PM EDT Oxygen Saturation 95% 09/27/2024 1:44 PM EDT Inhaled Oxygen Concentration - - Weight 81.6 kg (180 lb) 09/27/2024 12:35 PM EDT Height 160 cm (5' 3 ) 09/27/2024 12:35 PM EDT Body Mass Index 31.89 09/27/2024 12:35 PM EDT Plan of Treatment Upcoming Encounters Date Type Department Care Team (Late st Contact Info) Description 03/06/2025 10:30 AM EDT Office Visit Gastroenterology - [place] [address] [place] [phone] Héctor Harden DO [address] [place] [address] Health Maintenance Due Date Last Done Comments Breast Cancer Screening 1960 DTaP,Tdap,and Td Vaccines (1 - Tdap) 1979 Pneumococcal Vaccine: 50+ Years (1 of 2 - PCV) 1979 Zoster Vaccines (1 of 2) 1979 Cervical Cancer Screening: P ap Smear 1981 Cholesterol Screening (Lipid Panel) 04/30/2022 Colorectal Cancer Screening: Colonoscopy 04/30/2022 Depression Screening 04/30/2022 HIV Screening 04/30/2022 Hepatitis C Screening 04/30/2022 Social Influencers of Health Screening 04/30/2022 Hypertension/CHF/CAD Annual BMP Blood Test 05/04/2022 COVID-19 Vaccine (4 - 2023-2 5 season) 2024 03/28/2022, 09/20/2020, 08/30/2020 Influenza Vaccine (#1) 2025 2, 03/10/2020 RSV Immunization Adult Patients (1 - 1-dose 75+ series) 2035 HIB [...] patient's age to complete this topic Meningococcal B Vaccine Aged Out No l onger eligible based on patient's age to complete this topic RSV Immunization Patients Under 20 months Aged Out No longer eligible b ased on patient's age to complete this topic Varicella Vaccines Aged Out No longer eligible based on patient's age to complete this topic Procedures Procedure Name Priority Date/Time Associated Diagnosis Comments EGD Routine 09/27/2024 1:23 PM EDT Abnormal lower esophageal sphincter relaxation Esophageal disorder Gastroesophageal reflux disease, unspecified whether esophagitis present Esophageal dysmotility GERD (gastroesophageal reflux disease) Dysphagia, unspecified type TISSUE EXAM Routine 09/27/2024 1:17 PM EDT Abnormal lower esophageal sphincter relaxation Esophageal disorder Gastroesophageal reflux disease, unspecified whether esophagitis present Esophageal dysmotility GERD (gastroesophageal reflux disease) Dysphagia, unspecified type from Last 3 Months Results * EGD Dilation; Anesthesia - MAC; [facility] ENDOSCOPY (09/27/2024 1:23 PM EDT) Anatomical Region Laterality Modality Endoscopy 09/27/2024 1:02 PM EDT Impressions 09/27/2024 1:21 PM EDT - Benign-appearing esophageal stenosis. Dilated. Biopsied. - Erythematous mucosa in the stomach. Biopsied. - Normal examined duodenum. Recommendation: - Discharge patient to home. - Resume previous diet. - Continue present medications. - Await pathology results. Narrative 09/27/2024 1:21 PM EDT [facility] GI Patient Name: Elma Cherry Procedure Date: 09/27/2024 1:02 PM Date of : 1960 Age: 64 Gender: Female Note Status: Finalized Attending MD: Héctor Harden DO, [id number] Procedure Date No Time: 09/27/2024 Procedure: Upper GI endoscopy Indications: Dysphagia Providers: Héctor Harden DO Referring MD: Héctor Harden DO Medicines: Monitored Anesthesia Care Complications: No immediate complications. Estimated blood loss: Minimal. Estimated Blood Loss: Estimated blood loss was minimal. Procedure: Pre-Anesthesia Assessment: - - Prior to the procedure, a History and Physical was performed, and patient medications and allergies were reviewed. The patient is competent. The risks and benefits of the procedure and the sedation options and risks were discussed with the patient. All questions were answered and informed consent was obtained. Patient identification and proposed procedure were verified by the physician, the nurse, the anesthesiologist, the business continuity global director and the alarm field technician in the pre-procedure area in the endoscopy suite. Mental Status Examination: alert and oriented. Airway Examination: normal oropharyngeal airway and neck mobility. Respiratory Examination: clear to auscultation. CV Examination: normal. Prophylactic Antibiotics: The patient does not require prophylactic antibiotics. Prior Anticoagulants: The patient has taken no anticoagulant or antiplatelet agents. ASA Grade Assessment: III - A patient with severe systemic disease. After reviewing the risks and benefits, the patient was deemed in satisfactory condition to undergo the procedure. The anesthesia plan was to use monitored anesthesia care (MAC). Immediately prior to administration of medications, the patient was re-assessed for adequacy to receive sedatives. The heart rate, respiratory rate, oxygen saturations, blood pressure, adequacy of pulmonary ventilation, and response to care were monitored throughout the procedure. The physical status of the patient was re-assessed after the procedure. After obtaining informed consent, the endoscope was passed under direct vision. Throughout the procedure, the patient's blood pressure, pulse, and oxygen saturations were monitored continuously. The Olympus Gastroscope was introduced through the mouth, and advanced to the third part of duodenum. Findings: One benign-appearing, intrinsic moderate (circumferential scarring or stenosis; an endoscope may pass) stenosis was found 34 to 35 cm from the incisors. This stenosis measured 1.6 cm (inner diameter) x 1 cm (in length). The stenosis was traversed. A TTS dilator was passed through the scope. Dilation with an 18-19-20 mm balloon dilator was performed to 20 mm. The dilation site was examined and showed complete resolution of luminal narrowing. Estimated blood loss was minimal. Biopsies were taken with a cold forceps for histology. Estimated blood loss was minimal. Diffuse moderately erythematous mucosa without bleeding was found in the stomach. Biopsies were taken with a cold forceps for histology. Estimated blood loss was minimal. The examined duodenum was normal. Procedure Code(s): --- Professional --- 80922, Esophagogastroduodenoscopy, flexible, transoral; with transendoscopic balloon dilation of esophagus (less than 30 mm diameter) 88042, 59, Esophagogastroduodenoscopy, flexible, transoral; with biopsy, single or multiple Diagnosis Code(s): --- Professional --- K22.2, Esophageal obstruction K31.89, Other diseases of stomach and duodenum R13.10, Dysphagia, unspecified CPT copyright 2020 [employer]. All rights reserved. The codes documented in this report are preliminary and upon cpc coder review may be revised to meet current compliance requirements. HÉCTOR Harden DO 09/27/2024 1:21:31 PM This report has been signed electronically.Héctor Harden DO Number of Addenda: 0 Note Initiated On: 09/27/2024 1:02 PM Scope In: Scope Out: Endoscopy Department at [facility] - [address] [place] [phone] Procedure Note Héctor Harden DO - 09/27/2024 [facility] GI Patient Name: Elma Cherry Procedure Date: 09/27/2024 1:02 PM Date of : 1960 Age: 64 Gender: Female Note Status: Finalized Attending MD: Héctor Harden DO, [id number] Procedure Date No Time: 09/27/2024 Procedure: Upper GI endoscopy Indications: Dysphagia Providers: Héctor Harden DO Referring MD: Héctor Harden DO Medicines: Monitored Anesthesia Care Complications: No immediate [...] the physician, the nurse, the anesthesiologist, the business continuity global director and thetechnician in the pre-procedure area in the endoscopy suite. Mental Status Examination: alert and oriented.Airway Examination: normal oropharyngeal airway and neck mobility. Respiratory Examination: clear to auscultation. CV Examination: normal. Prophylactic Antibiotics: The patient does not requireprophylactic antibiotics. Prior Anticoagulants: The patient has taken no anticoagulant or antiplatelet agents. ASA Grade Assessment: III - A patient with severesystemic disease. After [...] pulse, and oxygen saturations were monitored continuously. TheOlympus Gastroscope was introduced through the mouth, and advanced to the third part of duodenum. Findings: One benign-appearing, intrinsic moderate (circumferential scarring or stenosis; an endoscope may pass) stenosis was found 34 to 35 cm from the incisors. This stenosis measured 1.6 cm (inner diameter) x 1 cm (in length). The stenosis was traversed. A TTS dilator was passed through thescope. Dilation with an 18-19-20 mm balloon dilator was performed to 20 mm. The dilation site was examinedand showed complete resolution of luminal narrowing. Estimated blood loss was minimal. Biopsies weretaken with a cold forceps for histology. Estimated blood loss was minimal. Diffuse moderately erythematous mucosa without bleeding was found in the stomach. Biopsies weretaken with a cold forceps for histology. Estimated blood loss was minimal. The examined duodenum was normal. Procedure Code(s): --- Professional --- 13959, Esophagogastroduodenoscopy, flexible, transoral; with transendoscopic balloon dilation of esophagus (less than 30 mm diameter) 04157, 59, Esophagogastroduodenoscopy, flexible, transoral; with biopsy, single or multiple Diagnosis Code(s): --- Professional --- K22.2, Esophageal obstruction K31.89, Other diseases of stomach and duodenum R13.10, Dysphagia, unspecified CPT copyright 2020 [employer]. All rights reserved. The codes documented in this report are preliminary and upon cpc coder reviewmay be revised to meet current compliance requirements. HÉCTOR Harden DO 09/27/2024 1:21:31 PM This report has been signed electronically.Héctor Harden DO Number of Addenda: 0 Note Initiated On: 09/27/2024 1:02 PM Scope In: Scope Out: Endoscopy Department at [facility] - [address] [place] [phone] IMPRESSION: - Benign-appearing esophageal stenosis. Dilated. Biopsied. - Erythematous mucosa in the stomach. Biopsied. - Normal examined duodenum. Recommendation: - Discharge patient to home. - Resume previous diet. - Continue present medications. - Await pathology results. us Héctor Harden DO GI~PROCEDURE ORDERABLES Final Re sult * Tissue exam (09/27/2024 1:17 PM EDT) Final Diagnosis A. Esophagus, biopsy: - Esophageal squamous mucosa with few intraepithelial eosinophils (maximum of two intraepithelial eosinophils in a high-power field) and reactive changes including mild spongiosis and focal elongation of subepithelial vascular papillae. - No glandular mucosa identified. B. Stomach, random sites, biopsy: - Gastric antral and oxyntic type mucosa with focal elongation of foveolar crypts with mucin depletion and mild edema, suggestive of reactive gastropathy. - No active gastritis and no intestinal metaplasia identified. - No Helicobacter pylori identified on hematoxylin and eosin stained sections. 09/30/2024 11:35 AM EDT [facility] HOSP[facility] LAB Gross Description A. Esophagus, biopsy: Labeled esophagus biopsy . Received in formalin are two irregular pink-white mucosal tissue fragments, measuring 0.1 cm and 0.4 cm in greatest dimension, which are wrapped in paper and submitted in toto in one cassette, two pieces, multiple levels on one slide. B. Stomach, random gastric biopsy: Labeled stomach random . Received in formalin are two irregular gilbert mucosal tissue fragments, each measuring approximately 0.3 cm in greatest dimension, which are wrapped in paper and submitted in toto in one cassette, two pieces, multiple levels on one slide. IMTIAZ 09/30/2024 11:35 AM EDT [facility] Disclaimer Unless otherwise specified, all tissue is 10% NB formalin fixed and paraffin embedded. 09/30/2024 11:35 AM EDT [facility] Tissue Esophageal structure / Unknown 09/27/2024 1:17 PM EDT 09/27/2024 3:35 PM EDT Tissue specimen (specimen) Stomach structure / Unknown 09/27/2024 1:18 PM EDT 09/27/2024 3:35 PM EDT us Héctor Harden DO LAB PATHOLOGY ORDERABLES Final R esult [facility] [address] [place] [address], from Last 3 Months Insurance [employer] [facility] Care Teams Cisco Administrator Relationship Specialty Start Date End Date Akin New DO [address] [place] [address] PCP - General 03/27/09
--- NOTE | 2024-12-05 07:46 | MHC.OFFVIS ---
Vital Signs 12/05/24 07:51 Height 5 ft 3 in Weight 184 lb 1.376 oz BMI 32.6 BP 115/72 Blood Pressure Location Rt brachial Position Sitting Pulse 82 Pulse Source Pulse Oximeter Pulse Oximetry (%) 98 Oxygen Delivery Method Room Air Intake Visit Reasons: FMS Intake Note: Patient presents for FMS follow up. Allergies No Known Allergies Allergy (Verified 12/05/24 07:50) Medication List - Last Reconciled 12/05/24 by Tsering Olvera MD acetaminophen (Tylenol) 650 mg PO Q6H PRN amitriptyline 100 mg PO BEDTIME atorvastatin 40 mg PO DAILY [id number] 600 mg calcium- 800 unit-50 mg 1 tab PO DAILY carvedilol 3.125 mg PO DAILY cyclobenzaprine 10 mg PO BEDTIME PRN exemestane 25 mg PO DAILY famotidine 20 mg PO BID PRN losartan 25 mg PO DAILY omeprazole 20 mg PO BID ondansetron HCl 4 mg PO Q8H PRN oxybutynin chloride 5 mg PO BID pregabalin 25 mg PO BID pregabalin 50 mg PO BEDTIME sucralfate 10 mL PO QID HPI Comments Details: Patient is a 64-year-old female with hypertension, hyperlipidemia, polymyalgia rheumatica and fibromyalgia here today for follow up Interval History: Patient last seen 06/20/24 with me - Reported some stiffness in her shoulders that is concerning for return of PMR - Has headaches that respond to Tylenol and no vision changes - Still with fibromyalgia pains but manageable Today, - Stable - fibromyalgia tender points of the trapezius - headaches that respond to tylenol Rheumatologic History: Patient initially diagnosed with PMR in 2016 and was finally tapered off prednisone in 12/2019. Since then she has not had any return of her PMR symptoms. Has not had any concerning signs or symptoms for GCA. Also diagnosed with fibromyalgia and is currently maintained on meds Current Rheumatology Medication(s): Amitriptyline 100 mg nightly Pregabalin 25 mg in the morning, 25 mg at noon, 50 mg at night Flexeril 10 mg bedtime PFSH Medical History Breast cancer, right longterm systemic steroid user Fibromyalgia Polymyalgia rheumatica Surgical History H/O hand surgery History of lumpectomy of right breast Hx of cholecystectomy Hx of section Family History Father CVD (cardiovascular disease) Mother Heart attack Social History Alcohol intake: current Alcohol intake frequency: a few times a month Alcohol type: wine and hard liquor Patient Tobacco Use Status: Never used Tobacco e-Cigarette/Vaping Use: Never Used Review of Systems Const Details: Review of Systems Constitutional: Denies fever, chills, weight loss ENT: Denies vision changes, eye pain or eye redness, dental caries, dry mouth GI: Denies nausea, vomiting, diarrhea, abdominal pain, change in BM Pulm: Denies SOB, MCDOWELL, hemoptysis, wheezing Cards: Denies chest pain, palpitations Skin: Denies Raynaud's, rash, nail changes, photosensitivity, 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 Well appearing and in no apparent painful distress Buffulo hump noted HEENT Conjunctiva and sclera clear. ?Pupils equal round and reactive to light. ?No lymphadenopathy. ? CHEST/RESPIRATORY SYSTEM Normal respiratory effort and able to speak in complete sentences. ?Clear to auscultation bilaterally. ?No crackles, rales, rhonchi, wheezes heard. CARDIAC SYSTEM Regular rate and rhythm. ?S1 and S2 heard no murmurs. ?Radial pulses intact bilaterally MSK Hands: ?Good sheet hanger strength bilaterally. No deformities noted. ?No synovitis noted to the MCPs, PIPs or DIPs. ?Heberden's nodes noted Wrists: ?Full range of motion at the wrists without pain. ?No tenderness to palpation or synovitis noted to the wrists. Elbows: Full range of motion without pain. No tenderness, weakness, swelling, increased warmth or erythema. Shoulders: Full range of motion without pain. Tenderness to palpation of the AC joints bilaterally Knees: ?Full range of motion. ?No tenderness, swelling, increased warmth or erythema.? Crepitations felt bilaterally Ankles: Full range of motion. ?No tenderness, swelling, increased warmth or erythema.? Feet: ?Negative squeeze test. ?No tenderness to palpation or swelling of the MTPs. Tender points:? Tenderness to palpation of bilateral trapezius, supraspinatus, anterior costochondral junctions SKIN Skin intact without rashes. Results Reviewed Results Reviewed: 07/04/24 [facility] WBC 6.9 Hb 13.0 Plt 250 BUN 12 Cr 1.09 eGFR 57 AST 24 ALT 19 ESR 19 CRP 6 Assessment & Plan Assessment & Plan (1) Polymyalgia rheumatica: Comment: Initially diagnosed in 2016. Off prednisone since December 2019. No return of PMR symptoms Code(s): M35.3 - Polymyalgia rheumatica Category: Medical Plan: #PMR Patient is a 64-year-old female with a history of PMR. Successfully tapered off Prednisone. Currently in remission. No concern for GCA at this time Plan - Monitor off prednisone and DMARDs - Follow up lab gabby results - RTC 6 months - Labs prior to visit: CBC, CMP, ESR, CRP (2) Fibromyalgia: Code(s): M79.7 - Fibromyalgia Category: Medical Plan: #Fibromyalgia Patient with fibromyalgia and widespread joint pain Discussed that fibromyalgia is a disease of the nerves and it requires her to be consistent with her stretches and utilizing medications as tools to manage the pain so that she can do more activity. Plan - Amitriptyline 100 mg nightly - Pregabalin 25 mg in the morning, 25 mg at noon, 50 mg at night - Flexeril 10 mg bid - Encouraged stretching and exercise Plan I spent 20 minutes reviewing the record and labs, taking a history, examining the patient, discussing the treatment plan and documenting in the medical record Medications: Changed From cyclobenzaprine 10 mg PO BEDTIME PRN 30 tabs 3RF for muscle spasm M79.7 - Fibromyalgia To cyclobenzaprine 10 mg PO BID 60 tabs 3RF for muscle spasm 30 days M79.7 - Fibromyalgia Coding Level of Care Code Est Pt Level 3 (88408) Complex EM visit Add On G2211 Diagnoses Polymyalgia rheumatica M35.3 Fibromyalgia M79.7
[2024-12-05 07:51] VITALS: BP 115/72; PULSE 82; O2SAT 98; BMI 32.6
== END 2024-12-05 08:31 | disposition home or self-care (01) ==
LOC: HO.RHE 07:43
PROVIDERS: PCP Family Medicine; Visit Provider Student in an Organized Health Care Education/Training Program
DX: M35.3 Polymyalgia rheumatica (principal); M79.7 Fibromyalgia
CPT/HCPCS: 99213